=== PATIENT | female | born 1960 | race African-American/Black ===

== ENCOUNTER 2017-08-19 10:38 | Outpatient (CLI) | payer MEDICARE, MEDICAID ==
--- NOTE | 2017-08-19 13:33 | CT ---
CT CHEST WITHOUT CONTRAST: Date: 08/19/17 Multiple axial tomograms obtained through chest without IV enhancement. Low dose protocol followed. HISTORY: Smoker for 20 years. FINDINGS: There is a soft tissue nodule in the right middle lobe adjacent to the fissure measuring up to 1.5 cm . This lesion is suspicious for neoplasm. There is a tiny 4.0 mm nodule in the right upper lobe. There is a 3-4 mm pleural based nodule in the right upper lobe. There is a 5.0 mm nodule in the peripheral left upper lobe. Mediastinum is unremarkable. Images through upper abdomen unremarkable. IMPRESSION: There is a 1.5 cm soft tissue nodule in the right middle lobe. There are other smaller nodules as laurel cribed above. This is a Lung-RADS Category 4B, suspicious lesion. Recommend PET scan to assess activity in this 1.5 cm mass. POS: [facility]
== END 2017-08-19 10:39 | disposition home or self-care (01) ==
LOC: CT 10:38
PROVIDERS: ATTEND Family Medicine
DX: F17.211 Nicotine dependence, cigarettes, in remission (principal); R91.1 Solitary pulmonary nodule; Z87.891 Personal history of nicotine dependence
CPT/HCPCS: G0297

== ENCOUNTER 2017-10-13 16:29 | Emergency (ER) | payer MEDICARE, OTHER ==
[2017-10-13] MEDS ORDERED: Ketorolac Tromethamine 30 MG/ML VIAL ONE (17:04)
== END 2017-10-13 17:36 | disposition home or self-care (01) ==
LOC: ERS 16:29
DX: K04.7 Periapical abscess without sinus (principal); E78.5 Hyperlipidemia, unspecified; F17.210 Nicotine dependence, cigarettes, uncomplicated
CPT/HCPCS: 96372; J1885

== ENCOUNTER 2017-11-12 10:12 | Outpatient (CLI) | payer MEDICARE, MEDICAID ==
--- NOTE | 2017-11-12 15:18 | PET ---
PET CT: Date: 11/12/17 HISTORY: 57-year-old female with 1.5 cm nodule in the right middle lobe on screening low density lung scan of 08/19/17. TECHNIQUE: PET scanning with CT attenuation correction was performed from the base of the brain through the prox imal thighs following the intravenous administration of 12.5 mCi F18-FDG. Imaging performed after an uptake interval of 53 minutes. CORRELATION: CT chest dated 08/19/17. FINDINGS: No hypermetabolic activity is seen in the 1.5 cm right middle lobe lung nodule. The other smaller jenniffer g nodules also demonstrate no abnormal FDG localization. No rodney metabolism is seen in the neck, chest, axilla, abdomen, or pelvis. No hypermetabolic liver, adrenal, or skeletal lesions are identified. CT scan used for attenuation correction demonstrates no evidence of pleural effusions or ascites. IMPRESSION: No hypermetabolic activity in the lung nodules. RECOMMENDATION: Follow-up CT scan is recommended in 3 months. POS: [facility]
== END 2017-11-12 10:13 | disposition home or self-care (01) ==
LOC: PET 10:12
PROVIDERS: ATTEND Family Medicine
DX: R91.1 Solitary pulmonary nodule (principal)
CPT/HCPCS: 78815; A9552

== ENCOUNTER 2017-12-09 11:32 | Emergency (ER) | payer MEDICARE, MEDICAID | END 2017-12-09 13:02 | disposition left against medical advice (07) | LOC: ERS 11:32 | DX: Z53.21 Procedure and treatment not carried out due to patient leaving prior to being seen by health care provider (principal) ==

== ENCOUNTER 2018-01-19 12:17 | Outpatient (CLI) | payer MEDICARE, OTHER | END 2018-01-19 12:18 | disposition home or self-care (01) | LOC: BICMAMMO 12:17 | PROVIDERS: ATTEND Specialist | DX: Z12.31 Encounter for screening mammogram for malignant neoplasm of breast (principal); Z80.3 Family history of malignant neoplasm of breast | CPT/HCPCS: 77063; 77067 ==

== ENCOUNTER 2018-02-11 10:42 | Outpatient (CLI) | payer MEDICARE, OTHER ==
[2018-02-11] MEDS ORDERED: ISOVUE-370 76%-LOCM 1 ML ONE (11:01)
== END 2018-02-11 10:43 | disposition home or self-care (01) ==
LOC: BICCT 10:42
PROVIDERS: ATTEND Family Medicine
DX: R91.1 Solitary pulmonary nodule (principal); R59.0 Localized enlarged lymph nodes
CPT/HCPCS: 71260

== ENCOUNTER 2018-07-28 17:25 | Emergency (ER) | payer MEDICARE, MEDICAID ==
[~2018-07-28 17:25] MED LIST: Iopamidol 370 76% 100 ML VIAL ONE
[2018-07-28 19:20] LABS: #Eosinphils 0.1 thou/uL (0.0-0.7); #Lymphocytes 2.7 thou/uL (1.20-3.40); #Monocytes 0.9 thou/uL (0.11-0.59); #Neutrophils 16.3 thou/uL (1.40-6.50); %Basophils 0.2 % (0.0-1.0); %Eosinophils 0.3 % (0.0-10.0); %Lymphocytes 13.5 % (21.0-51.0); %Monocytes 4.3 % (0.0-10.0); %Neutrophils 81.7 % (42.0-75.0); Hemoglobin 14.6 g/dL (12.0-16.0); Mean Corpuscular HGB CONC 32.1 g/dL (32.0-36.0); Mean Corpuscular Hemoglobin 27.6 pg (27.0-31.0); Mean Platelet Volume 10.2 fL (7.4-10.4); Platelet Count 270 thou/uL (130-400); RBC Distribution Width 14.9 % (11.5-14.5); White Blood Cell (WBC) Count 19.9 thou/uL (4.8-10.8)
[2018-07-28 19:32] LABS: ALT (SGPT) 25 U/L (8-55); AST (SGOT) 20 U/L (5-34); Albumin 4.4 g/dL (3.5-5.0); Alkaline Phosphatase 78 U/L (40-150); Anion Gap 14 mmol/L (10-20); BUN (Urea Nitrogen) 17 mg/dL (9.8-20.1); Bilirubin, Total 0.4 mg/dL (0.2-1.2); Calc. Creatinine Clearance 0 mL/min (70-130); Calcium 9.4 mg/dL (7.8-10.44); Carbon Dioxide 24 mmol/L (22-29); Chloride 105 mmol/L (98-107); Estimated GFR-MDRD 87; Globulin 3.5 g/dL (2.4-3.5); Glucose 108 mg/dL (70-105); Potassium 3.9 mmol/L (3.5-5.1); Protein, Total 7.9 g/dL (6.0-8.3); Sodium 139 mmol/L (136-145)
[2018-07-28] MEDS ORDERED: Mag-Al 1200 mg/1200 mg/30 ML UDCUP ONE (20:29)
[2018-07-28] MEDS ORDERED: Ondansetron ODT 4 MG TAB ONE (20:29)
[2018-07-28] MEDS ORDERED: Lidocaine Viscous Sol 2% 15 ml UD Cup ONE (20:29)
[2018-07-28 21:11] LABS: Troponin I Less than 0.010 ng/mL (< 0.028)
--- NOTE | 2018-07-28 23:27 | CT ---
CT OF THE ABDOMEN AND PELVIS WITH IV CONTRAST 07/28/18 INDICATION: History of abdominal pain. FINDINGS: There is stable right middle lobe pulmonary nodule. Tiny hypodensities are seen within the right hepatic lobe, too small to characterize. The pancreas, adrenal glands, and kidneys are normal appearing. The spleen is normal appearing. No fr ee fluid or enlarged lymph nodes are evident. There is normal appendix in the right lower quadrant. Small suspected fibroid is seen within the ante rior uterine fundus. An unopacified large and small bowel appear within normal limits. There is scatt ered vascular calcifications. No definite acute osseous abnormality is evident. Laminectomy change is seen at L4. There are chronic appearing superior end plate compression deformities of L1 and L2 which are stable to a comparison d ated 02/11/18 . IMPRESSION: 1. No acute explanation for the patient's abdominal pain. 2. Tiny hypodensities within the right hepatic lobe, too small to characterize. 3. Normal appendix. 4. Fibroid uterus. 5. Chronic appearing superior end plate compression abnormality of L1 and L2 stable to a compari son CT dated 02/11/18. POS: [facility]
== END 2018-07-28 22:17 | disposition home or self-care (01) ==
LOC: ERS 17:25
DX: K29.70 Gastritis, unspecified, without bleeding (principal); I10 Essential (primary) hypertension; F17.210 Nicotine dependence, cigarettes, uncomplicated; Z79.899 Other long term (current) drug therapy
CPT/HCPCS: 36415; 74177; 80053; 83690; 84484; 85025; 93005; Q0162

== ENCOUNTER 2018-08-11 10:46 | Outpatient (CLI) | payer MEDICARE, MEDICAID ==
--- NOTE | 2018-08-11 13:25 | CT ---
CT CHEST WITH IV CONTRAST: History: Lung nodule. Follow up. Comparison: Multiple exams back to 08-19-17. FINDINGS: The largest of the low density lesions, at the posterior aspect of the medial segment right middle lo be remains smoothly marginated. It is 1.5 x 1.0 cm greatest diameters on the axial images, stable. Th e small nodules within the right upper lobe and left upper lobe, subpleural, are stable also. No pleu ral fluid. No new masses. The lobular low density lymph node at the precarinal and subcarinal levels of the mediastinum are unc hanged in appearance. IMPRESSION: One year stability of the bilateral lung nodules and the lobular low density mediastinal lymph nodes. No hypermetabolic activity was described on PET scan from 11-12-17. Please consider continued follow up, with CT chest in 6 months, to evaluate for stability. The goal would be to demonstrate three year s stability. POS: [facility]
== END 2018-08-11 10:47 | disposition home or self-care (01) ==
LOC: BICCT 10:46
PROVIDERS: ATTEND Family Medicine
DX: R91.8 Other nonspecific abnormal finding of lung field (principal)
CPT/HCPCS: 71260

== ENCOUNTER 2019-01-28 10:17 | Outpatient (CLI) | payer MEDICARE, MEDICAID ==
--- NOTE | 2019-01-28 10:52 | MMO ---
Bilateral MAMMO Bilat Screen [facility]. CLINICAL HISTORY: Patient is 58 years old and is seen for screening. The patient has the following family history of breast cancer: maternal aunt, at age 68 and maternal aunt, at age 65. The patient has no personal history of cancer. VIEWS: The views performed were: bilateral craniocaudal with tomosynthesis; bilateral mediolateral oblique with tomosynthesis; and left exaggerated craniocaudal. FILMS COMPARED: The present examination has been compared to prior imaging studies performed at [facility] on 04/12/2013, 06/05/2014, 06/28/2015, 07/10/2016 and 01/19/2018. MAMMOGRAM FINDINGS: There are scattered fibroglandular densities. There are no suspicious masses, suspicious calcifications, or new areas of architectural distortion. IMPRESSION: THERE IS NO MAMMOGRAPHIC EVIDENCE OF MALIGNANCY. A ROUTINE FOLLOW-UP MAMMOGRAM IN 1 YEAR IS RECOMMENDED. THE RESULTS OF THIS EXAM WERE SENT TO THE PATIENT. ACR BI-RADS Category 1 - Negative MAMMOGRAPHY NOTE: 1. A negative mammogram report should not delay a biopsy if a dominant of clinically suspicious mass is present. 2. Approximately 10% to 15% of breast cancers are not detected by mammography. 3. Adenosis and dense breasts may obscure an underlying neoplasm.
== END 2019-01-28 10:18 | disposition home or self-care (01) ==
LOC: BICMAMMO 10:17
PROVIDERS: ATTEND Family Medicine
DX: Z12.31 Encounter for screening mammogram for malignant neoplasm of breast (principal); Z80.3 Family history of malignant neoplasm of breast
CPT/HCPCS: 77063; 77067

== ENCOUNTER 2019-08-09 13:36 | Outpatient (CLI) | payer MEDICARE, MEDICAID ==
[2019-08-09] MEDS ORDERED: Iopamidol 370 76% 100 ML VIAL ONE (13:48)
--- NOTE | 2019-08-09 15:41 | CT ---
Exam: Chest CT with contrast HISTORY: Pulmonary nodule. COMPARISON: 08/11/2018 FINDINGS: Mediastinum: Persistent lymphadenopathy in the right paratracheal region. Conglomeration of lymph nod e measures 2.6 x 1.5 cm. Previously, the conglomeration of lymph node measured 2.6 x 1.5 cm. Enlarged, necrotic subcarinal lymph node measures 2.5 x 1.7 cm. Additional enlarged subcarinal lymph node measures 2.1 x 1.1 cm. Previously, the necrotic subcarinal lymph node measured 2.8 x 1.5 cm. The adjacent hypodensity measured 2.1 x 1.3 cm. This adjacent hypodensity may in retrospect be a smal l focus of pericardial fluid. No significant hilar lymphadenopathy. There is a posterior right mediastinal necrotic lymph node measuring 2.9 x 1.9 cm (previously measuring 1.7 x 2.4 cm. HEART: No significant pericardial fluid or cardiac enlargement. Aorta: Normal caliber. Upper abdomen: No solid organ abnormality Osseous structures: No lytic or blastic lesions Trachea and central bronchi: Patent Pleural spaces: No pleural effusion Pneumothorax: None Right lun.4 cm solid nodule in the apex. 0.4 cm pleural-based nodule in the lateral aspect of the right upper lobe. Stable 0.2 cm subpleural lymph node adjacent to the minor fissure. Stable pleural-based nodule along the lateral aspect of the middle lobe measuring 0.4 cm. Interval size incr ease of a slightly irregular marginated nodule in the medial aspect of the middle lobe measuring 1.9 x 1.1 cm. Previously, this nodule measured 1.1 x 1.5 cm. The nodules reported in the right upper lobe are unchanged. Left lun separate solid nodules in the left upper lobe measuring 0.5 x 0.4 and 0.6 x 0.4 cm. Both nodules are unchanged from the previous examination. IMPRESSION: 1. Redemonstration of extensive mediastinal lymphadenopathy. Some of these lymph nodes appear to be n ecrotic. 2. 2. Interval increase in size of a nodule along the middle lobe. Further evaluation with PET imaging may be beneficial given the size increase of the right lower lobe nodule and persist ent lymphadenopathy in the mediastinum. CODE T Transcribed Date/Time: 08/09/2019 3:50 PM
== END 2019-08-09 13:37 | disposition home or self-care (01) ==
LOC: BICCT 13:36
PROVIDERS: ATTEND Family Medicine
DX: R91.1 Solitary pulmonary nodule (principal); R59.0 Localized enlarged lymph nodes
CPT/HCPCS: 71260; Q9967

== ENCOUNTER 2019-09-01 07:23 | Outpatient (CLI) | payer MEDICARE, MEDICAID ==
--- NOTE | 2019-09-01 11:02 | PET ---
PET CT: HISTORY: 59-year-old with solitary pulmonary nodules right middle lobe. TECHNIQUE: PET scanning with CT attenuation correction was performed from the base of the brain through the prox imal thighs following the intravenous administration of 11.8 mCi F18-FDG in the right antecubital fos sa. COMPARISON: PET CT of 11/12/17. CORRELATION: CT chest of 08/09/19. FINDINGS: No hypermetabolic activity is seen in the 2.0 x 1.0 cm right middle lobe lung nodule (SUV 1.3). The o ther small lung nodules also demonstrate no abnormal FDG localization. There is mildly increased uptake in a right paratracheal lymph node with a SUV of 2.6. Subcarinal lym ph nodes demonstrate no abnormal FDG localization and have a SUV of 1.9. No rodney hypermetabolism is noted in the neck, axilla, hilar regions, abdomen, or pelvis. No hypermet abolic liver, renal, or skeletal lesions are identified. The CT scan used for attenuation correction demonstrates no evidence of pleural effusions or ascites. There is physiologic activity in the GI and tracts, and the visualized portions of the brain. IMPRESSION: Hypermetabolic activity in the right paratracheal lymph node may represent a suspicious finding. POS: [facility]
== END 2019-09-01 07:24 | disposition home or self-care (01) ==
LOC: PET 07:23
PROVIDERS: ATTEND Family Medicine
DX: R91.1 Solitary pulmonary nodule (principal)
CPT/HCPCS: 78815; A9552

== ENCOUNTER 2019-10-25 13:55 | Outpatient (CLI) | payer MEDICARE, MEDICAID ==
--- NOTE | 2019-10-25 14:40 | RAD ---
LUMBAR SPINE: Three views obtained. Lateral views with neutral, flexion, and extension. INDICATION: Post laminectomy syndrome. COMPARISON: Correlation is made to an MRI lumbar spine dated 12/01/2016. FINDINGS: There is mild superior end plate compression at L1 and L2 which has occurred since the prior exam. M ild anterior osteophytes at all levels. Mild loss of disk space at T12-L1 and at L1-2. Mild loss of disk space at L4-5 and L5-S1 appears stable from the prior MRI. Moderate facet hypertrophy in the l ower lumbar spine. Posterior alignment is preserved with no change with flexion or extension. IMPRESSION: Mild superior end plate compression at L1 and L2 has occurred since the prior exam. There are degene rative changes as described. POS: [facility]
== END 2019-10-25 13:56 | disposition home or self-care (01) ==
LOC: RAD 13:55
PROVIDERS: ATTEND Nurse Practitioner Family
DX: M96.1 Postlaminectomy syndrome, not elsewhere classified (principal); M47.816 Spondylosis without myelopathy or radiculopathy, lumbar region
CPT/HCPCS: 72100

== ENCOUNTER 2019-10-31 09:08 | Outpatient (CLI) | payer MEDICARE, MEDICAID ==
--- NOTE | 2019-10-31 09:46 | RAD ---
XR Chest Pa Lat @ [facility] HISTORY: Dyspnea COMPARISON: None FINDINGS: The heart size is normal. The lungs are well expanded without focal areas of consolidation, pneumothorax or pleural effusions. IMPRESSION: No radiographic evidence of acute cardiopulmonary process. Evaluation of the lung nodule noted on CT scan of 08/09/2019 should be performed with a follow-up CT scan.
== END 2019-10-31 09:09 | disposition home or self-care (01) ==
LOC: RAD 09:08
PROVIDERS: ATTEND Internal Medicine Critical Care Medicine
DX: R06.00 Dyspnea, unspecified (principal)
CPT/HCPCS: 71046

== ENCOUNTER 2019-11-02 06:04 | Day surgery (SDC) | payer MEDICARE, MEDICAID ==
[2019-11-01 15:28] VITALS: BMI 45.7
[2019-11-02] MEDS ORDERED: Fentanyl 100 MCG/2 ML VIAL ONE (06:31)
[2019-11-02] MEDS ORDERED: Bupivacaine PF 0.5% 30 ML VIAL ONE (06:49)
[2019-11-02] MEDS ORDERED: EPINEPHrine 1 MG/ML AMP ONE (06:49)
[2019-11-02 06:52] LABS: Hemoglobin 13.7 g/dL (12.0-16.0); Mean Corpuscular HGB CONC 33.6 g/dL (32.0-36.0); Mean Corpuscular Hemoglobin 27.6 pg (27.0-31.0); Mean Corpuscular Volume 82.1 fL (78.0-98.0); Mean Platelet Volume 10.6 fL (7.4-10.4); Platelet Count 227 thou/uL (130-400); RBC Distribution Width 14.1 % (11.5-14.5); Red Blood Cell (RBC) Count 4.96 mill/uL (4.20-5.40); White Blood Cell (WBC) Count 11.8 thou/uL (4.8-10.8)
[2019-11-02 07:05] LABS: Anion Gap 15 mmol/L (10-20); BUN (Urea Nitrogen) 9 mg/dL (9.8-20.1); Calc. Creatinine Clearance 143 mL/min (70-130); Carbon Dioxide 25 mmol/L (22-29); Chloride 103 mmol/L (98-107); Estimated GFR-MDRD Greater than 90; Glucose 122 mg/dL (70-105); Potassium 4.3 mmol/L (3.5-5.1); Sodium 139 mmol/L (136-145)
--- NOTE | 2019-11-02 09:24 | OP ---
DATE OF PROCEDURE: 11/02/2019 PREOPERATIVE DIAGNOSIS: Mediastinal adenopathy-PET positive. POSTOPERATIVE DIAGNOSIS: Mediastinal adenopathy-PET positive. PROCEDURE PERFORMED: Cervical mediastinoscopy with biopsy of level 4R lymph node. ANESTHESIA: General endotracheal, Dr. Kieran Mantilla. ESTIMATED BLOOD LOSS: Minimal. SPECIMENS: Level 4R lymph node for AFB, culture, and pathology. DESCRIPTION OF PROCEDURE: After consent was obtained, the patient was brought to the operating room and placed in supine position on the operating table. Appropriate central line and monitors were placed and general endotracheal anesthesia was induced. Neck was extended and joints were appropriately supported. Neck and chest were prepped and draped in usual sterile fashion. Skin incision was made in a low skin crease. Dissection down between the strap muscles was obtained. Thyroid isthmus was divided with electrocautery. Anterior tracheal fascia was incised. Blunt dissection was used to enter the mediastinum. Mediastinoscope was inserted, and the trachea was followed distally. On the right, there was noted to be a large lymph node, which was excised and sent for culture, AFB, and pathologic exam. Hemostasis was ensured. Wounds were closed in layers and Dermabond was applied to skin. Incision was injected with 0.5% Marcaine mixed with epinephrine. The patient tolerated the procedure well. She was transferred to recovery room and home later today. We will follow up with her on path. Job ID: [id number]
[2019-11-02] MEDS ORDERED: Dexamethasone 20 MG/5 ML VIAL ONE (12:46)
[2019-11-02] MEDS ORDERED: Glycopyrrolate 0.2 MG/ML 5 ML SYRINGE ONE (12:46)
[2019-11-02] MEDS ORDERED: Labetalol HCl 100 MG/20 ML VIAL ONE (12:46)
[2019-11-02] MEDS ORDERED: Lidocaine 1% PF 5 ML VIAL ONE (12:46)
[2019-11-02] MEDS ORDERED: PROPOFOL 200 MG/20 ML VIAL ONE (12:46)
[2019-11-02] MEDS ORDERED: Ketorolac Tromethamine 30 MG/ML VIAL ONE (12:46)
[2019-11-02] MEDS ORDERED: Ondansetron PF 4 MG/2 ML Vial ONE (12:46)
[2019-11-02] MEDS ORDERED: Rocuronium Bromide 10 MG/ML (10ML VIAL) ONE (12:46)
== END 2019-11-02 10:40 | disposition home or self-care (01) ==
LOC: SDC 06:04
PROVIDERS: ATTEND Thoracic Surgery (Cardiothoracic Vascular Surgery)
PROC: 07B74ZX Excision of Thorax Lymphatic, Percutaneous Endoscopic Approach, Diagnostic (ICD-10-PCS; principal; 2019-11-02)
DX: R59.0 Localized enlarged lymph nodes (principal); F17.210 Nicotine dependence, cigarettes, uncomplicated; Z79.82 Long term (current) use of aspirin; Z79.899 Other long term (current) drug therapy; Z88.8 Allergy status to other drugs, medicaments and biological substances; Z91.018 Allergy to other foods
CPT/HCPCS: 80048; 85027; 87070; 87102; 87116; 87205; 87206; 88184; 88307; 88312; J0171; J0690; J3010; S0020

== ENCOUNTER 2020-02-17 13:33 | Outpatient (CLI) | payer MEDICARE, MEDICAID ==
--- NOTE | 2020-02-17 15:53 | MMO ---
Bilateral MAMMO Bilat Screen [facility]. CLINICAL HISTORY: Patient is 59 years old and is seen for screening. The patient has the following family history of breast cancer: maternal aunt, at age 68 and maternal aunt, at age 65. The patient has no personal history of cancer. VIEWS: The views performed were: bilateral craniocaudal with tomosynthesis; bilateral mediolateral oblique with tomosynthesis; and bilateral exaggerated craniocaudal. FILMS COMPARED: The present examination has been compared to prior imaging studies performed at [facility] on 06/28/2015, 07/10/2016, 01/19/2018 and 01/28/2019. This study has been interpreted with the assistance of computer-aided detection. MAMMOGRAM FINDINGS: There are scattered fibroglandular densities. There are no suspicious masses, suspicious calcifications, or new areas of architectural distortion. IMPRESSION: THERE IS NO MAMMOGRAPHIC EVIDENCE OF MALIGNANCY. A ROUTINE FOLLOW-UP MAMMOGRAM IN 1 YEAR IS RECOMMENDED. THE RESULTS OF THIS EXAM WERE SENT TO THE PATIENT. ACR BI-RADS Category 1 - Negative MAMMOGRAPHY NOTE: 1. A negative mammogram report should not delay a biopsy if a dominant of clinically suspicious mass is present. 2. Approximately 10% to 15% of breast cancers are not detected by mammography. 3. Adenosis and dense breasts may obscure an underlying neoplasm. Reported by: JOSE A ROMANO MD Electonically Signed: [id number]
== END 2020-02-17 13:34 | disposition home or self-care (01) ==
LOC: BICMAMMO 13:33
PROVIDERS: ATTEND Family Medicine
DX: Z12.31 Encounter for screening mammogram for malignant neoplasm of breast (principal); Z80.3 Family history of malignant neoplasm of breast
CPT/HCPCS: 77063; 77067

== ENCOUNTER 2020-03-09 11:56 | Outpatient (CLI) | payer OTHER, MEDICAID ==
--- NOTE | 2020-03-09 13:39 | MRI ---
MRI Lumbar Spine WO Con History: S 32.000 a wedge compression fracture Comparison: Lumbar spine radiograph October 2019 Findings: No hydronephrosis. No retroperitoneal periaortic adenopathy. Paraspinal musculature is symmetric. No marrow infiltrative process. No acute fracture. The STIR images are limited due to lack of adequate signal. The conus medullaris terminates near the superior endplate of L2. Old anterior superior compression d eformities of L1 and L2. No acute compression deformity. Laminectomy change L3-L5. Levels are as follows: L1-2: Mild facet arthrosis. Small circumferential disc bulge. Mild bilateral neural foraminal narrowi ng. Effacement of ventral CSF space, mild, with the spinal canal measuring 6 mm. L2/L3: Normal disc height and hydration. Minimal asymmetric left lateral recess and subforaminal disc bulge. Mild left neural foraminal narrowing. No significant spinal canal narrowing. L3-4: Moderate degenerative disc space height loss. Circumferential disc bulge. Moderate hypertrophic facet arthrosis. Moderate to severe left and moderate right neural foraminal narrowing with abutment of both exiting nerve roots. L4-5: Mild degenerative disc space height loss is circumferential disc osteophyte complex greatest in the right lateral recess and subforaminal zone. Severe left and moderate to severe right neural foraminal narrowing with abutment of both exiting nerve roots. L5/S1: Circumferential disc osteophyte complex greatest in the left lateral recess and subforaminal z one. Severe left neural foraminal narrowing and moderate to severe right neural foraminal narrowing with impingement upon the left exiting nerve root and abutment of the left S1 nerve root appears also abutment of the right exiting L5 nerve root. Impression: Multilevel high-grade neural foraminal narrowing as described.
== END 2020-03-09 11:57 | disposition home or self-care (01) ==
LOC: BICMRI 11:56
PROVIDERS: ATTEND Specialist
DX: S32.000A Wedge compression fracture of unspecified lumbar vertebra, initial encounter for closed fracture (principal); M48.061 Spinal stenosis, lumbar region without neurogenic claudication
CPT/HCPCS: 72148

== ENCOUNTER 2020-07-18 10:28 | Outpatient (CLI) | payer MEDICARE, MEDICAID ==
[2020-07-18 10:48] LABS: Estimated GFR-MDRD - POC Greater than 90
--- NOTE | 2020-07-18 11:12 | CT ---
CT chest with IV contrast HISTORY: Lung nodule. Follow-up. COMPARISON: 08/09/2019 and 08/11/2018. FINDINGS: The noncalcified soft tissue density nodule within the inferior posterior aspect of the rig ht middle lobe measures 1.6 cm x 1.1 cm greatest diameters on today's axial images, stable. Additional small, nonspecific subpleural nodules within each lung are also stable, including a 0.3 cm nodule at the lateral aspect of the right lung apex, a 0.4 cm nodule at the anterolateral aspect of the left upper lobe, and a 0.4 cm nodule within the lateral aspect of the left upper lobe. No pleu ral fluid or pneumothorax. The oval low density subcarinal lymph node is 4.9 cm greatest oblique length on the coronal images by 2.8 cm x 1.8 cm diameters on the axial images. Stable. The 1.3 cm right paratracheal lymph node is slightly smaller than on the prior study. Other nonenlarged mediastinal lymph nodes are stable. A 1.2 cm noncalcified nodule within the deep lateral aspect of the right breast was seen on the most recent PET scan without hypermetabolic activity. IMPRESSION : The right paratracheal lymph node (hypermetabolic on interval PET scan) is smaller than on the prior study, now 1.3 cm. Other mediastinal lymph nodes and lung nodules, including the 1.6 cm right middle lobe nodule, are stable. No new abnormalities.
== END 2020-07-18 10:29 | disposition home or self-care (01) ==
LOC: BICCT 10:28
PROVIDERS: ATTEND Internal Medicine Critical Care Medicine
DX: R91.1 Solitary pulmonary nodule (principal)
CPT/HCPCS: 71260; 82565; Q9967

== ENCOUNTER 2020-08-19 10:18 | Emergency (ER) | payer MEDICARE, MEDICAID ==
[~2020-08-19 10:18] MED LIST changes: -Iopamidol 370 76% 100 ML VIAL ONE; +Iopamidol-370 76% 500 ML 1 ML ONE
[2020-08-19] MEDS ORDERED: Ondansetron PF 4 MG/2 ML Vial ONE (10:47)
[2020-08-19] MEDS ORDERED: Morphine 4 MG/ML VIAL ONE (10:47)
[2020-08-19 11:00] LABS: #Basophils 0.1 thou/uL (0.0-0.2); #Eosinphils 0.2 thou/uL (0.0-0.7); #Lymphocytes 3.6 thou/uL (1.20-3.40); #Monocytes 0.9 thou/uL (0.11-0.59); #Neutrophils 6.7 thou/uL (1.40-6.50); %Basophils 0.7 % (0.0-1.0); %Eosinophils 1.4 % (0.0-10.0); %Lymphocytes 31.5 % (21.0-51.0); %Monocytes 7.7 % (0.0-10.0); %Neutrophils 58.6 % (42.0-75.0); Hemoglobin 12.8 g/dL (12.0-16.0); Mean Corpuscular HGB CONC 32.1 g/dL (32.0-36.0); Mean Corpuscular Hemoglobin 26.4 pg (27.0-31.0); Mean Corpuscular Volume 82.4 fL (78.0-98.0); Mean Platelet Volume 10.5 fL (7.4-10.4); Platelet Count 245 thou/uL (130-400); RBC Distribution Width 14.6 % (11.5-14.5); Red Blood Cell (RBC) Count 4.83 mill/uL (4.20-5.40); White Blood Cell (WBC) Count 11.5 thou/uL (4.8-10.8)
[2020-08-19 11:23] LABS: ALT (SGPT) 18 U/L (8-55); AST (SGOT) 22 U/L (5-34); Albumin 3.8 g/dL (3.5-5.0); Alkaline Phosphatase 108 U/L (40-110); Anion Gap 16 mmol/L (10-20); BUN (Urea Nitrogen) 7 mg/dL (9.8-20.1); Bilirubin, Total 0.5 mg/dL (0.2-1.2); Calc. Creatinine Clearance 0 mL/min (70-130); Calcium 9.5 mg/dL (7.8-10.44); Carbon Dioxide 26 mmol/L (22-29); Chloride 99 mmol/L (98-107); Estimated GFR-MDRD 86; Globulin 3.7 g/dL (2.4-3.5); Glucose 157 mg/dL (70-105); Lipase 28 U/L (8-78); Potassium 3.9 mmol/L (3.5-5.1); Protein, Total 7.5 g/dL (6.0-8.3); Sodium 137 mmol/L (136-145)
[2020-08-19 13:00] LABS: Bilirubin Negative (Negative); Blood, Urine Negative (Negative); Clarity Turbid (Clear); Glucose, Urine (Dipstick) Normal (Negative); Ketone, Urine Negative (Negative); Leukocyte 500 Leu/uL (Negative); Nitrite Negative (Negative); Protein, Urine (Dipstick) Negative (Neg-Trace); Specific Gravity, Urine 1.039 (1.002-1.036); Urobilinogen Normal mg/dL (Less than 2); pH, Urine 5.5 (5.0-9.0)
[2020-08-19 13:09] LABS: RBC/HPF 0-3 HPF (0-3)
[2020-08-19 13:10] LABS: Bacteria/HPF 2+ HPF (None Seen)
[2020-08-19] MEDS ORDERED: cefTRIAXone\\ROCEPHIN 1 GM VIAL ONE (13:30)
--- NOTE | 2020-08-19 13:39 | CT ---
CT ABDOMEN AND PELVIS WITH IV CONTRAST: DATE: 08/19/2020 HISTORY: Abdominal pain. FINDINGS: Comparison made with CT abdomen and pelvis dated 07/28/[address] chest of 07/18/2020. The 15 mm right middle lobe lung nodule and enlarged subcarinal lymph nodes measuring up to 2.8 cm ar e stable since the CT chest of 07/18/2020. There are mild dependent changes in the right lung base. There is fatty infiltration of the liver, which is new since 07/28/2018, but was seen on the CT chest of 07/18/2020. No hepatic mass or abnormal biliary ductal dilatation is seen. No calcified gallstone s are noted. The spleen, pancreas, adrenal glands, and kidneys are normal. No free air, free fluid, or lymphadenopathy seen in the abdomen or pelvis. The small bowel loops are not abnormally dilated. There is no evidence of ascites. Fibroid uterus is again seen. There are vascular calcifications without evidence of aneurysmal dilatation of the abdominal aorta. T here are degenerative changes in the spine. No osteolytic or osteoblastic lesions are seen. A small h iatal hernia is present. IMPRESSION: No evidence of acute process. POS: [facility]
== END 2020-08-19 13:55 | disposition home or self-care (01) ==
LOC: ERS 10:18
DX: N39.0 Urinary tract infection, site not specified (principal); R91.1 Solitary pulmonary nodule; Z79.899 Other long term (current) drug therapy; Z79.891 Long term (current) use of opiate analgesic; E78.00 Pure hypercholesterolemia, unspecified; Z87.891 Personal history of nicotine dependence
CPT/HCPCS: 74177; 80053; 81003; 81015; 83690; 85025; 87086; 96361; 96365; 96375; J0696; J2270; J2405; Q9967

== ENCOUNTER 2020-08-23 09:10 | Emergency (ER) | payer MEDICARE, MEDICAID ==
[2020-08-23 09:44] LABS: #Basophils 0.1 thou/uL (0.0-0.2); #Eosinphils 0.2 thou/uL (0.0-0.7); #Lymphocytes 3.2 thou/uL (1.20-3.40); #Monocytes 0.8 thou/uL (0.11-0.59); #Neutrophils 6.9 thou/uL (1.40-6.50); %Basophils 0.6 % (0.0-1.0); %Lymphocytes 28.8 % (21.0-51.0); %Monocytes 7.1 % (0.0-10.0); %Neutrophils 61.6 % (42.0-75.0); Hemoglobin 11.9 g/dL (12.0-16.0); Mean Corpuscular HGB CONC 32.1 g/dL (32.0-36.0); Mean Corpuscular Hemoglobin 26.8 pg (27.0-31.0); Mean Corpuscular Volume 83.7 fL (78.0-98.0); Mean Platelet Volume 9.9 fL (7.4-10.4); Platelet Count 225 thou/uL (130-400); RBC Distribution Width 14.5 % (11.5-14.5); Red Blood Cell (RBC) Count 4.43 mill/uL (4.20-5.40); White Blood Cell (WBC) Count 11.2 thou/uL (4.8-10.8)
[2020-08-23 10:14] LABS: ALT (SGPT) 15 U/L (8-55); AST (SGOT) 17 U/L (5-34); Albumin 3.6 g/dL (3.5-5.0); Alkaline Phosphatase 96 U/L (40-110); Anion Gap 13 mmol/L (10-20); BUN (Urea Nitrogen) 5 mg/dL (9.8-20.1); Bilirubin, Total 0.4 mg/dL (0.2-1.2); Calc. Creatinine Clearance 0 mL/min (70-130); Calcium 8.9 mg/dL (7.8-10.44); Carbon Dioxide 31 mmol/L (22-29); Chloride 102 mmol/L (98-107); Estimated GFR-MDRD Greater than 90; Globulin 3.5 g/dL (2.4-3.5); Glucose 140 mg/dL (70-105); Potassium 3.7 mmol/L (3.5-5.1); Protein, Total 7.1 g/dL (6.0-8.3); Sodium 142 mmol/L (136-145)
[2020-08-23 10:35] LABS: Bilirubin Negative (Negative); Blood, Urine Negative (Negative); Clarity Turbid (Clear); Glucose, Urine (Dipstick) Normal (Negative); Ketone, Urine Negative (Negative); Leukocyte 500 Leu/uL (Negative); Nitrite Negative (Negative); Protein, Urine (Dipstick) 10 mg/dL (Neg-Trace); RBC/HPF 0-3 HPF (0-3); Specific Gravity, Urine 1.018 (1.002-1.036); Squamous Epithelial 21-50 HPF (0-3); Urobilinogen Normal mg/dL (Less than 2)
[2020-08-23 10:40] LABS: Bacteria/HPF 1+ HPF (None Seen)
--- NOTE | 2020-08-23 10:42 | ULT ---
TRANSABDOMINAL TRANSVAGINAL PELVIC ULTRASOUND DATE:: 08/23/2020 9:55 AM CLINICAL HISTORY: Pelvic pain. COMPARISON: None. TECHNIQUE: Grayscale, color Doppler and spectral Doppler images were obtained of the pelvis utilizing a transabdominal and transvaginal approach. There is limited visualization of the pelvic anatomy due to overlying bowel gas. FINDINGS: UTERUS: Size: 8.4 x 5.9 x 5.0 centimeters Mass: None Cervix: Small echogenicity is seen within the endocervical canal likely related to gas. Endometrial Thickness: 14.2 mm. RIGHT OVARY: Not seen LEFT OVARY: Not seen CUL-DE-SAC: No free fluid IMPRESSION: Image detail is limited on the current exam. Thickening of the endometrial stripe to 14 mm is abnorma l for a postmenopausal female. Recommend consideration for endometrial sampling. Findings may reflect hyperplasia, polyposis or carcinoma. If clinically indicated, further evaluation may be helpf ul with an MRI of the pelvis with and without IV contrast.
[2020-08-23] MEDS ORDERED: Ondansetron PF 4 MG/2 ML Vial ONE (11:43)
[2020-08-23] MEDS ORDERED: Morphine 4 MG/ML VIAL ONE (11:43)
== END 2020-08-23 12:20 | disposition home or self-care (01) ==
LOC: ERS 09:10
DX: N85.00 Endometrial hyperplasia, unspecified (principal); E78.00 Pure hypercholesterolemia, unspecified; M19.90 Unspecified osteoarthritis, unspecified site; Z87.891 Personal history of nicotine dependence; Z79.899 Other long term (current) drug therapy
CPT/HCPCS: 36415; 76856; 80053; 81003; 81015; 85025; 87086; 94760; 96374; 96375; J2270; J2405

== ENCOUNTER 2020-09-17 09:59 | Day surgery (SDC) | payer MEDICARE, MEDICAID ==
[2020-09-12 12:49] VITALS: BMI 45.7
[2020-09-12 17:13] LABS: Hemoglobin 11.9 g/dL (12.0-16.0); Mean Corpuscular HGB CONC 30.9 G/DL (32.0-36.0); Mean Corpuscular Hemoglobin 25.8 PG (27.0-33.0); Mean Corpuscular Volume 83.3 fl (80.0-100.0); Mean Platelet Volume 12.6 fl (7.4-10.4); Platelet Count 273 10x3/uL (130-400); RBC Distribution Width 15.8 % (11.5-14.5); Red Blood Cell (RBC) Count 4.62 10x6/uL (3.90-5.20); White Blood Cell (WBC) Count 11.4 10x3/uL (4.5-11.0)
[2020-09-13 02:45] LABS: SARS-CoV-2 MS2 Positive; SARS-CoV-2 N Gene Negative; SARS-CoV-2 S Gene Negative; SARS-CoV-2 by NAA Not Detected (NotDetected); SARS-CoV-2 orf1ab Negative
[2020-09-17] MEDS ORDERED: ePHEDrine 50 MG/ML VIAL ONE (10:00)
[2020-09-17] MEDS ORDERED: Ondansetron PF 4 MG/2 ML Vial ONE (10:00)
[2020-09-17] MEDS ORDERED: Glycopyrrolate 0.2 MG/ML 5 ML SYRINGE ONE (10:00)
[2020-09-17] MEDS ORDERED: Succinylcholine 200 MG/10 ml SYRINGE FS ONE (10:00)
[2020-09-17] MEDS ORDERED: Dexamethasone 20 MG/5 ML VIAL ONE (10:00)
[2020-09-17] MEDS ORDERED: Lidocaine 1% PF 5 ML VIAL ONE (10:00)
[2020-09-17] MEDS ORDERED: Rocuronium Bromide 10 MG/ML (10ML VIAL) ONE (10:00)
[2020-09-17] MEDS ORDERED: PROPOFOL 200 MG/20 ML VIAL ONE (10:00)
[2020-09-17] MEDS ORDERED: Fentanyl 100 MCG/2 ML VIAL ONE ×2 (10:52→10:55)
[2020-09-17] MEDS ORDERED: CeleCOXIB 100 MG CAP ONE (10:55)
[2020-09-17] MEDS ORDERED: Famotidine/PF 20 mg/2ml Vial ONE (10:55)
--- NOTE | 2020-09-17 14:59 | OP ---
DATE OF PROCEDURE: 09/17/2020 PREOPERATIVE DIAGNOSES: 1. Pelvic pain. 2. Thickened endometrium. POSTOPERATIVE DIAGNOSES: 1. Pelvic pain. 2. Thickened endometrium. PROCEDURES PERFORMED: 1. Hysteroscopy. 2. Dilation and curettage. 3. Pap smear. ANESTHESIA: General endotracheal. 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 ESTIMATED BLOOD LOSS: 5 mL. IVF: 1100 mL of crystalloid. URINE OUTPUT: 200 mL of clear urine at the beginning. COMPLICATIONS: None. DRAINS: None. PATHOLOGY: 1. Endometrial curettings. 2. Pap smear. FINDINGS: Normal-appearing postLEEP cervix with cervical stenosis at scarring over the ectocervix. On hysteroscopic exam, there was a normal-appearing endocervical canal, normal-appearing uterine cavity with normal contours, atrophic endometrium, no intrauterine masses. Bilateral tubal ostia were visualized. The uterus sounded to 7 cm and there was 10 mL fluid deficit using normal saline as distention media. DESCRIPTION OF PROCEDURE: The patient was taken to the operating room where general anesthesia was obtained difficulty. The patient was prepped and draped in a sterile fashion in dorsal lithotomy position. Prior to Betadine prep, Pap smear was performed. Following the Betadine prep, a red rubber in-and-out catheterization was performed. A speculum was placed in the vagina. The anterior lip of the cervix was grasped with single-tooth tenaculum. The scarring over the cervical canal was attempted to be entered into with dilators as well as hemostats. This was unsuccessful, therefore, a #11 blade was used to make a cruciate incision over the ectocervical stenosis, and at that time, a dilator was able to be introduced into the cervical canal and the cervix was progressively dilated with Andrez dilators. The uterus then sounded to 7 cm. A 5-mm hysteroscope was assembled using normal saline as distention media. It was primed and the scope was then inserted into the cervix and uterus with the above findings noted. Photodocumentation was performed. Previously, the patient had imaging that showed a thickened endometrial stripe; however, this was not apparent on today's hysteroscopic exam. However, following photodocumentation, the hysteroscope was removed and sharp curettage was taken to all quadrants of the uterus and sent for final pathology. The hysteroscope was then inserted into the uterus and no active bleeding was noted. All instruments were removed out of the vagina. Tenaculum sites were hemostatic. The patient tolerated the procedure well. Sponge, lap, and needle counts correct x2. The patient was taken to Recovery in stable condition. The patient did not receive antibiotic prophylaxis prior to the procedure. Job ID: [id number]
[2020-09-22 21:25] LABS: HPV High Risk Type 16 Negative (Negative); HPV High Risk Type 18 Negative (Negative)
[2020-09-22 21:27] LABS: HPV Other High Risk Types Negative (Negative)
== END 2020-09-17 15:35 | disposition home or self-care (01) ==
LOC: SDC 09:59
PROVIDERS: ATTEND Student in an Organized Health Care Education/Training Program
PROC: 0UDB7ZZ Extraction of Endometrium, Via Natural or Artificial Opening (ICD-10-PCS; principal; 2020-09-17)
PROC: 0UDB8ZZ Extraction of Endometrium, Via Natural or Artificial Opening Endoscopic (ICD-10-PCS; 2020-09-17)
DX: D06.9 Carcinoma in situ of cervix, unspecified (principal); N88.2 Stricture and stenosis of cervix uteri; F17.200 Nicotine dependence, unspecified, uncomplicated; G89.29 Other chronic pain; M54.9 Dorsalgia, unspecified; Z79.899 Other long term (current) drug therapy; Z88.8 Allergy status to other drugs, medicaments and biological substances; Z91.018 Allergy to other foods; Z20.828 Contact with and (suspected) exposure to other viral communicable diseases
CPT/HCPCS: 58558; 85027; 86850; 86900; 86901; 87624; 88305; G0123; U0003; 87635; 88142; G0124; J0690; J1100; J2405; J2704; J3010; J3490; S0028

== ENCOUNTER 2021-01-07 11:04 | Outpatient (CLI) | payer MEDICARE, MEDICAID ==
[2021-01-07 11:31] LABS: Hemoglobin 13.5 g/dL (12.0-15.5); Mean Corpuscular HGB CONC 31.8 g/dL (32.0-36.0); Mean Corpuscular Hemoglobin 25.8 pg (27.0-33.0); Mean Corpuscular Volume 81.1 fl (81.6-98.3); Mean Platelet Volume 12.7 fl (7.4-10.4); Platelet Count 302 10x3/uL (150-450); RBC Distribution Width 16.2 % (11.5-14.5); Red Blood Cell (RBC) Count 5.24 10x6/uL (3.90-5.03); White Blood Cell (WBC) Count 15.2 10x3/uL (3.5-10.5)
[2021-01-07 11:45] LABS: BHCG - Serum Negative (NEGATIVE); Pregs Control Background? CLEAR/WHITE (CLR/WHITE); Pregs Control Bar Appear? YES (CONTROL BAR)
[2021-01-07 11:50] LABS: ALT (SGPT) 20 U/L (8-55); AST (SGOT) 17 U/L (5-34); Alkaline Phosphatase 107 U/L (40-110); Anion Gap 17 mmol/L (10-20); BUN (Urea Nitrogen) 11 mg/dL (9.8-20.1); Bilirubin, Direct 0.2 mg/dL (0.1-0.3); Bilirubin, Total 0.3 mg/dL (0.2-1.2); Calc. Creatinine Clearance 0 mL/min (70-130); Calcium 9.5 mg/dL (7.8-10.44); Carbon Dioxide 22 mmol/L (22-29); Chloride 103 mmol/L (98-107); Glucose 142 mg/dL (70-105); Potassium 4.3 mmol/L (3.5-5.1); Protein, Total 7.6 g/dL (6.0-8.3); Sodium 138 mmol/L (136-145)
== END 2021-01-07 11:05 | disposition home or self-care (01) ==
LOC: LABBT 11:04
PROVIDERS: ATTEND Student in an Organized Health Care Education/Training Program
DX: Z01.812 Encounter for preprocedural laboratory examination (principal); D06.9 Carcinoma in situ of cervix, unspecified
CPT/HCPCS: 80048; 80076; 84703; 85027

== ENCOUNTER 2021-01-10 08:19 | Day surgery (SDC) | payer MEDICARE, MEDICAID, OTHER ==
[2021-01-08 02:28] LABS: SARS-CoV-2 PCR by NAA Not Detected (NotDetected)
[2021-01-09 10:44] VITALS: BMI 50.3
[2021-01-10] MEDS ORDERED: Gabapentin 300 MG CAP ONE (08:39)
[2021-01-10] MEDS ORDERED: Famotidine 20 MG TAB ONE (08:39)
[2021-01-10] MEDS ORDERED: CeleCOXIB 100 MG CAP ONE (08:39)
[2021-01-10] MEDS ORDERED: Fentanyl 100 MCG/2 ML VIAL ONE ×5 (09:45→14:46)
[2021-01-10] MEDS ORDERED: Lidocaine 2% w/Epinephrine 1:200K 20 ML VIAL ONE (10:18)
[2021-01-10] MEDS ORDERED: Bupivacaine PF 0.5% 30 ML VIAL ONE (10:18)
[2021-01-10] MEDS ORDERED: Midazolam HCl 2 mg/2 ml Vial ONE (10:35)
[2021-01-10] MEDS ORDERED: Rocuronium Bromide 10 MG/ML (10ML VIAL) ONE (11:08)
[2021-01-10] MEDS ORDERED: Ondansetron PF 4 MG/2 ML Vial ONE (11:08)
[2021-01-10] MEDS ORDERED: Glycopyrrolate 0.2 MG/ML 5 ML SYRINGE ONE (11:08)
[2021-01-10] MEDS ORDERED: Lidocaine 1% PF 5 ML VIAL ONE (11:08)
[2021-01-10] MEDS ORDERED: PROPOFOL 200 MG/20 ML VIAL ONE (11:08)
[2021-01-10] MEDS ORDERED: Metoclopramide HCl 10 MG/2 ML VIAL ONE (11:08)
[2021-01-10] MEDS ORDERED: HYDROcodone/Acetaminophen 5/325 mg Tablet PO PRN (13:42)
[2021-01-10] MEDS ORDERED: Ondansetron PF 4 MG/2 ML Vial IVP PRN (13:42)
[2021-01-10] MEDS ORDERED: Promethazine HCl 25 MG/ML VIAL IM PRN ×2 (13:42→14:07)
[2021-01-10] MEDS ORDERED: Dextrose 50% Abboject 50 ML SYRINGE SLOW IVP PRN (13:43)
[2021-01-10] MEDS ORDERED: Bisacodyl 10 MG SUPP PR PRN (13:43)
[2021-01-10] MEDS ORDERED: Dextrose 5% in Water 1,000 ML IV PRN (13:43)
[2021-01-10] MEDS ORDERED: Insulin Regular 300 UNITS/3 ML VIAL SC PRN (13:43)
[2021-01-10] MEDS ORDERED: Simethicone Chewable 80 MG TAB PO PRN (13:43)
[2021-01-10] MEDS ORDERED: diphenhydrAMINE 25 MG CAP PO PRN (13:43)
[2021-01-10] MEDS ORDERED: Ondansetron HCl/PF 4 MG/2 ML Vial IVP PRN (14:07)
[2021-01-10] MEDS ORDERED: Promethazine HCl 25 MG/ML VIAL SLOW IVP PRN (14:07)
[2021-01-10] MEDS: Ketorolac Tromethamine 30 MG/ML VIAL IVP SCH ×2 (15:57→23:38)
[2021-01-10] MEDS: Sodium Chloride 0.9% 1,000 ML IV SCH ×2 (16:03→23:40)
[2021-01-10] MEDS: metFORMIN 500 MG TAB PO SCH (17:18)
[2021-01-10] MEDS: HYDROcodone/Acetaminophen 5/325 mg Tablet PO PRN ×2 (18:27→23:39)
[2021-01-10] MEDS: Cyclobenzaprine 10 MG TAB PO PRN (20:09)
[2021-01-10] MEDS: DULoxetine 60 MG CAP PO SCH (20:09)
[2021-01-10] MEDS: Atorvastatin Calcium 20 MG TAB PO SCH (20:09)
[2021-01-10] MEDS: Fentanyl 100 MCG/2 ML VIAL SLOW IVP PRN (22:50)
[2021-01-11] MEDS: Fentanyl 100 MCG/2 ML VIAL SLOW IVP PRN ×2 (01:13→05:48)
[2021-01-11] MEDS: Cyclobenzaprine 10 MG TAB PO PRN ×2 (05:11→17:39)
[2021-01-11] MEDS: HYDROcodone/Acetaminophen 5/325 mg Tablet PO PRN ×2 (05:11→10:27)
[2021-01-11] MEDS: Ibuprofen 600 MG TAB PO SCH ×3 (05:11→21:30)
[2021-01-11 05:51] LABS: Hemoglobin 11.8 g/dL (12.0-16.0); Mean Corpuscular HGB CONC 30.9 g/dL (32.0-36.0); Mean Corpuscular Volume 84.1 fL (78.0-98.0); Mean Platelet Volume 10.3 fL (7.4-10.4); Platelet Count 220 thou/uL (130-400); RBC Distribution Width 15.5 % (11.5-14.5); Red Blood Cell (RBC) Count 4.53 mill/uL (4.20-5.40); White Blood Cell (WBC) Count 16.4 thou/uL (4.8-10.8)
[2021-01-11] MEDS: metFORMIN 500 MG TAB PO SCH ×2 (08:12→17:39)
[2021-01-11] MEDS: DULoxetine 60 MG CAP PO SCH ×2 (08:12→21:31)
[2021-01-11] MEDS ORDERED: HYDROcodone/Acetaminophen 7.5/325 mg Tablet PO PRN (10:42)
[2021-01-11 13:49] LABS: Bilirubin Negative (Negative); Blood, Urine 2+ (Negative); Clarity Clear (Clear); Glucose, Urine (Dipstick) Normal (Negative); Ketone, Urine Negative (Negative); Leukocyte 75 Leu/uL (Negative); Nitrite Negative (Negative); Protein, Urine (Dipstick) Negative (Neg-Trace); Specific Gravity, Urine 1.006 (1.002-1.036); Squamous Epithelial 0-3 HPF (0-3); Urobilinogen Normal mg/dL (Less than 2); pH, Urine 5.5 (5.0-9.0)
[2021-01-11 13:50] LABS: Bacteria/HPF 1+ HPF (None Seen)
[2021-01-11] MEDS: HYDROcodone/Acetaminophen 7.5/325 mg Tablet PO PRN ×2 (15:22→21:30)
[2021-01-11] MEDS: Sodium Chloride 0.9% 1,000 ML IV SCH (19:27)
[2021-01-11] MEDS: Enoxaparin Sodium 40 MG/0.4 ML SYRINGE SC SCH (21:31)
[2021-01-11] MEDS: Atorvastatin Calcium 20 MG TAB PO SCH (21:31)
[2021-01-12] MEDS: HYDROcodone/Acetaminophen 7.5/325 mg Tablet PO PRN ×3 (01:24→11:42)
[2021-01-12] MEDS: Ibuprofen 600 MG TAB PO SCH (05:10)
[2021-01-12] MEDS: DULoxetine 60 MG CAP PO SCH (08:21)
[2021-01-12] MEDS: Cyclobenzaprine 10 MG TAB PO PRN (08:21)
[2021-01-12] MEDS: metFORMIN 500 MG TAB PO SCH (08:21)
[2021-01-12] MEDS: Enoxaparin Sodium 40 MG/0.4 ML SYRINGE SC SCH (08:21)
[2021-01-12 11:59] VITALS: BP 138/94; TEMP 98.6
== END 2021-01-12 12:22 | disposition home or self-care (01) ==
LOC: SDC 08:19 → SJJU 13:42 → SDC 01-12 12:22
PROVIDERS: ATTEND Student in an Organized Health Care Education/Training Program
PROC: 0UT94ZZ Resection of Uterus, Percutaneous Endoscopic Approach (ICD-10-PCS; principal; 2021-01-10)
PROC: 0UT24ZZ Resection of Bilateral Ovaries, Percutaneous Endoscopic Approach (ICD-10-PCS; 2021-01-10)
PROC: 0UT74ZZ Resection of Bilateral Fallopian Tubes, Percutaneous Endoscopic Approach (ICD-10-PCS; 2021-01-10)
DX: D06.0 Carcinoma in situ of endocervix (principal); D25.9 Leiomyoma of uterus, unspecified; N83.8 Other noninflammatory disorders of ovary, fallopian tube and broad ligament; N70.11 Chronic salpingitis; N73.6 Female pelvic peritoneal adhesions (postinfective); E11.9 Type 2 diabetes mellitus without complications; E66.01 Morbid (severe) obesity due to excess calories; Z68.43 Body mass index [BMI] 50.0-59.9, adult; Z79.82 Long term (current) use of aspirin; Z79.84 Long term (current) use of oral hypoglycemic drugs; Z79.899 Other long term (current) drug therapy; Z88.8 Allergy status to other drugs, medicaments and biological substances; Z91.018 Allergy to other foods; Z20.822 Contact with and (suspected) exposure to COVID-19
CPT/HCPCS: 58571; 71046; 82962; 85027; 86850; 86900; 86901; 87086; 88307; 93005; U0003; U0005; 36415; 36416; 81003; 81015; 87635; 93010; J0690; J1650; J1885; J2250; J2405; J2704; J2765; J3010; S0020

== ENCOUNTER 2021-05-15 11:17 | Outpatient (CLI) | payer MEDICARE, MEDICAID, OTHER | END 2021-05-15 11:18 | disposition home or self-care (01) | LOC: BICMAMMO 11:17 | PROVIDERS: ATTEND Family Medicine | DX: Z12.31 Encounter for screening mammogram for malignant neoplasm of breast (principal); Z80.3 Family history of malignant neoplasm of breast | CPT/HCPCS: 77063; 77067 ==

== ENCOUNTER 2021-07-11 08:31 | Outpatient (CLI) | payer MEDICARE, MEDICAID | END 2021-07-11 08:32 | disposition home or self-care (01) | LOC: BICCT 08:31 | PROVIDERS: ATTEND Internal Medicine Critical Care Medicine | DX: R91.1 Solitary pulmonary nodule (principal); R91.8 Other nonspecific abnormal finding of lung field; I89.8 Other specified noninfective disorders of lymphatic vessels and lymph nodes; D86.9 Sarcoidosis, unspecified | CPT/HCPCS: 71250 ==

== ENCOUNTER 2022-06-06 09:55 | Outpatient (CLI) | payer OTHER, MEDICAID | END 2022-06-06 09:56 | disposition home or self-care (01) | LOC: BICMAMMO 09:55 | PROVIDERS: ATTEND Family Medicine | DX: Z12.31 Encounter for screening mammogram for malignant neoplasm of breast (principal); Z80.3 Family history of malignant neoplasm of breast | CPT/HCPCS: 77063; 77067 ==

== ENCOUNTER 2023-07-06 14:44 | Outpatient (CLI) | payer OTHER, MEDICAID | END 2023-07-06 14:45 | disposition home or self-care (01) | LOC: CT 14:44 | PROVIDERS: ATTEND Family Medicine | DX: Z12.2 Encounter for screening for malignant neoplasm of respiratory organs (principal); F17.210 Nicotine dependence, cigarettes, uncomplicated; R91.1 Solitary pulmonary nodule | CPT/HCPCS: 71271 ==

== ENCOUNTER 2024-03-16 14:22 | Emergency (ER) | payer OTHER, MEDICAID ==
[2024-03-16] MEDS ORDERED: Ketorolac Tromethamine 30 MG (1 mL) VIAL ONE (16:16)
[2024-03-16 16:29] LABS: Influenza A by NAA Not Detected (NotDetected); Influenza B by NAA Not Detected (NotDetected); SARS-CoV-2 NAA Rapid Test Not Detected (NotDetected)
== END 2024-03-16 18:27 | disposition home or self-care (01) ==
LOC: ERS 14:22
DX: B34.9 Viral infection, unspecified (principal); E78.00 Pure hypercholesterolemia, unspecified; F17.210 Nicotine dependence, cigarettes, uncomplicated; Z79.899 Other long term (current) drug therapy
CPT/HCPCS: 0240U; 71046; 96372; 99283; J1885

== ENCOUNTER 2024-04-12 10:25 | Outpatient (CLI) | payer OTHER, MEDICAID | END 2024-04-12 10:26 | disposition home or self-care (01) | LOC: BICMRI 10:25 | PROVIDERS: ATTEND Neurological Surgery | DX: M54.12 Radiculopathy, cervical region (principal); M48.02 Spinal stenosis, cervical region | CPT/HCPCS: 72141 ==

== ENCOUNTER 2024-06-09 10:49 | Outpatient (CLI) | payer OTHER, MEDICAID ==
[2024-06-09 12:18] LABS: #Basophils 0.03 10x3/uL (0.0-0.2); %Basophils 0.3 % (0.0-1.0); %Eosinophils 1.3 % (0.0-10.0); %Monocytes 5.6 % (0.0-10.0); %Neutrophils 61.5 % (42.0-75.0); Hematocrit 39.1 % (36.0-47.0); Hemoglobin 12.7 g/dL (12.0-16.0); Mean Corpuscular HGB CONC 32.5 g/dL (32.0-36.0); Mean Corpuscular Volume 83.2 fL (78.0-98.0); Mean Platelet Volume 11.7 fL (7.4-10.4); Platelet Count 230 10x3/uL (130-400); RBC Distribution Width 15.6 % (11.5-14.5)
[2024-06-09 12:39] LABS: Anion Gap 11 mmol/L (10-20); BUN (Urea Nitrogen) 9 mg/dL (9.8-20.1); Calc. Creatinine Clearance 0 mL/min (70-130); Calcium 9.7 mg/dL (7.8-10.44); Carbon Dioxide 24 mmol/L (23-31); Chloride 110 mmol/L (98-107); Estimated GFR 89; Glucose 93 mg/dL (80-115); Potassium 3.8 mmol/L (3.5-5.1); Sodium 141 mmol/L (136-145)
== END 2024-06-09 10:50 | disposition home or self-care (01) ==
LOC: LABBT 10:49
PROVIDERS: ATTEND Neurological Surgery
DX: Z01.818 Encounter for other preprocedural examination (principal); M47.12 Other spondylosis with myelopathy, cervical region
CPT/HCPCS: 80048; 85025; 93005; 93010

== ENCOUNTER 2024-06-09 11:00 | Inpatient (IN) | payer OTHER, MEDICAID ==
[2024-06-09 11:15] VITALS: BMI 36.0
[2024-06-13] MEDS ORDERED: PROPOFOL 20 ML ONE (07:58)
[2024-06-13] MEDS ORDERED: Fentanyl 250 MCG/5 ML VIAL ONE (07:59)
[2024-06-13] MEDS ORDERED: Lidocaine 1% PF 5 ML VIAL ONE (08:02)
[2024-06-13] MEDS ORDERED: Rocuronium Bromide 10 MG/ML (10ML VIAL) ONE (08:02)
[2024-06-13] MEDS ORDERED: CEFAZOLIN 2 GM VIAL ONE (09:13)
[2024-06-13] MEDS ORDERED: Sodium Chloride 0.9% 100 ML ONE (09:13)
[2024-06-13] MEDS ORDERED: Bacitracin Zinc Ointment 30 gm TUBE ONE (09:22)
[2024-06-13] MEDS ORDERED: Vancomycin 1 GM VIAL ONE (09:22)
[2024-06-13] MEDS ORDERED: Mag-Al 1200 mg/1200 mg/30 ML UDCUP PO PRN (09:23)
[2024-06-13] MEDS ORDERED: Ondansetron PF 4 MG/2 ML Vial IVP PRN (09:23)
[2024-06-13] MEDS ORDERED: diphenhydrAMINE 25 MG CAP PO PRN (09:23)
[2024-06-13] MEDS ORDERED: Milk Of Magnesia 30 ML UDCUP PO PRN (09:23)
[2024-06-13] MEDS ORDERED: traMADol HCl 50 MG TAB PO PRN (09:23)
[2024-06-13] MEDS ORDERED: HYDROcodone/Acetaminophen 10/325 mg Tablet PO PRN (09:23)
[2024-06-13] MEDS ORDERED: Promethazine 25 MG TAB PO PRN (09:23)
[2024-06-13] MEDS ORDERED: Glucagon 1 MG/ML KIT IM PRN (09:26)
[2024-06-13] MEDS ORDERED: Dextrose 50% Abboject 50 ML SYRINGE SLOW IVP PRN (09:26)
[2024-06-13] MEDS ORDERED: Dextrose 5% in Water 1,000 ML IV PRN (09:26)
[2024-06-13] MEDS ORDERED: Insulin Lispro 100 UNIT/ML 10 ML VIAL SC PRN (09:26)
[2024-06-13] MEDS ORDERED: Dexamethasone 20 MG/5 ML VIAL ONE (10:00)
[2024-06-13] MEDS ORDERED: Dexamethasone 4 mg/ml Vial ONE (10:00)
[2024-06-13] MEDS ORDERED: PHENYLEPHRINE-NS 100 MCG/ML 10 ML SYRINGE ONE (10:24)
[2024-06-13] MEDS ORDERED: ePHEDrine Sulfate 50 MG/10 ML VIAL ONE (10:33)
[2024-06-13] MEDS ORDERED: Lidocaine 2% PF 5 ML VIAL ONE (12:08)
[2024-06-13] MEDS ORDERED: Ondansetron PF 4 MG/2 ML Vial ONE ×2 (12:09→13:48)
[2024-06-13] MEDS ORDERED: SUGAMMADEX SODIUM 200 MG/2 ML VIAL ONE (12:14)
[2024-06-13] MEDS ORDERED: fentaNYL PF 100 MCG/2 ML SYRINGE ONE (12:50)
[2024-06-13] MEDS ORDERED: HYDROmorphone 0.5 MG/0.5 ML SYRINGE ONE ×3 (13:32→13:57)
[2024-06-13] MEDS ORDERED: Meperidine HCl/PF 25 MG (1 mL) VIAL ONE (13:45)
[2024-06-13] MEDS: Morphine 2 MG/ML VIAL SLOW IVP PRN (15:51)
[2024-06-13] MEDS: Gabapentin 100 MG CAP PO SCH (15:52)
[2024-06-13] MEDS: HYDROcodone/Acetaminophen 10/325 mg Tablet PO PRN (15:52)
[2024-06-13 16:56] LABS: #Basophils Less than 0.03 10x3/uL (0.0-0.2); #Eosinphils Less than 0.03 10x3/uL (0.0-0.7); %Basophils 0.1 % (0.0-1.0); %Lymphocytes 8.4 % (21.0-51.0); %Monocytes 1.5 % (0.0-10.0); %Neutrophils 89.4 % (42.0-75.0); Hematocrit 37.3 % (36.0-47.0); Hemoglobin 11.8 g/dL (12.0-16.0); Mean Corpuscular HGB CONC 31.6 g/dL (32.0-36.0); Mean Corpuscular Hemoglobin 26.8 pg (27.0-31.0); Mean Corpuscular Volume 84.8 fL (78.0-98.0); Mean Platelet Volume 12.1 fL (7.4-10.4); Platelet Count 192 10x3/uL (130-400); RBC Distribution Width 15.7 % (11.5-14.5)
[2024-06-13] MEDS: CEFAZOLIN 2 GM in Sodium Chloride 0.9% 100 ML IVPB SCH (17:51)
[2024-06-13] MEDS: Sodium Chloride 0.9% 1,000 ML IV SCH (17:52)
[2024-06-13] MEDS: Cyclobenzaprine 10 MG TAB PO PRN (17:53)
[2024-06-13] MEDS ORDERED: CEFAZOLIN 2 GM in Sodium Chloride 0.9% 100 ML IVPB SCH ×2 (20:00→22:00)
[2024-06-13] MEDS: Topiramate 25 MG TAB PO SCH (20:09)
[2024-06-13] MEDS: DULoxetine 60 MG CAP PO SCH (20:09)
[2024-06-14] MEDS: CEFAZOLIN 2 GM in Sodium Chloride 0.9% 100 ML IVPB SCH (01:29)
[2024-06-14] MEDS ORDERED: Phenol 177 ML BOT PO PRN (06:30)
[2024-06-14] MEDS ORDERED: Benzocaine/Menthol 1 LOZ LOZ PO PRN (06:30)
[2024-06-14 08:19] LABS: ALT (SGPT) 17 U/L (8-55); AST (SGOT) 25 U/L (5-34); Albumin 3.4 g/dL (3.4-4.8); Alkaline Phosphatase 79 U/L (40-110); Anion Gap 11 mmol/L (10-20); BUN (Urea Nitrogen) 6 mg/dL (9.8-20.1); Bilirubin, Total 0.5 mg/dL (0.2-1.2); Calc. Creatinine Clearance 110 mL/min (70-130); Calcium 8.9 mg/dL (7.8-10.44); Carbon Dioxide 25 mmol/L (23-31); Chloride 104 mmol/L (98-107); Estimated GFR 92; Globulin 3.5 g/dL (2.4-3.5); Glucose 123 mg/dL (80-115); Potassium 3.6 mmol/L (3.5-5.1); Protein, Total 6.9 g/dL (5.8-8.1); Sodium 136 mmol/L (136-145)
[2024-06-15 11:57] VITALS: BP 157/92; TEMP 99.3
== END 2024-06-15 14:18 | disposition home or self-care (01) | DRG 473 ==
LOC: SURG A 06-13 07:01 → INTOOBSV 06-13 07:01 → SURG A 06-13 14:52 → OBSVTOIN 06-14 18:38
PROVIDERS: ADMIT Neurological Surgery; ATTEND Neurological Surgery
PROC: 0RG2071 Fusion of 2 or more Cervical Vertebral Joints with Autologous Tissue Substitute, Posterior Approach, Posterior Column, Open Approach (ICD-10-PCS; principal; 2024-06-13)
PROC: 01N10ZZ Release Cervical Nerve, Open Approach (ICD-10-PCS; 2024-06-13)
DX: M48.02 Spinal stenosis, cervical region (principal); E78.5 Hyperlipidemia, unspecified; E11.9 Type 2 diabetes mellitus without complications; F17.210 Nicotine dependence, cigarettes, uncomplicated; G89.4 Chronic pain syndrome; Z66 Do not resuscitate; E66.01 Morbid (severe) obesity due to excess calories; I10 Essential (primary) hypertension; Z85.44 Personal history of malignant neoplasm of other female genital organs; Z90.710 Acquired absence of both cervix and uterus; Z79.899 Other long term (current) drug therapy; Z79.85 Long-term (current) use of injectable non-insulin antidiabetic drugs; Z79.82 Long term (current) use of aspirin; Z79.1 Long term (current) use of non-steroidal anti-inflammatories (NSAID); Z68.36 Body mass index [BMI] 36.0-36.9, adult; Z88.8 Allergy status to other drugs, medicaments and biological substances; Z91.018 Allergy to other foods
CPT/HCPCS: 36415; 36416; 80053; 85025; C1713; J1100; J1170; J2001; J2175; J2272; J2405; J2704; J3010; J3370; J7030

== ENCOUNTER 2024-07-04 13:45 | Outpatient (CLI) | payer OTHER, MEDICAID | END 2024-07-04 13:46 | disposition home or self-care (01) | LOC: BICRAD 13:45 | PROVIDERS: ATTEND Neurological Surgery | DX: M47.12 Other spondylosis with myelopathy, cervical region (principal); Z98.890 Other specified postprocedural states | CPT/HCPCS: 72040 ==

== ENCOUNTER 2024-09-07 13:47 | Outpatient (CLI) | payer OTHER, MEDICAID | END 2024-09-07 13:48 | disposition home or self-care (01) | LOC: BICCT 13:47 | PROVIDERS: ATTEND Family Medicine | DX: Z12.31 Encounter for screening mammogram for malignant neoplasm of breast (principal); Z12.2 Encounter for screening for malignant neoplasm of respiratory organs; F17.210 Nicotine dependence, cigarettes, uncomplicated; Z80.3 Family history of malignant neoplasm of breast | CPT/HCPCS: 71271; 77063; 77067 ==

== ENCOUNTER 2024-09-16 14:02 | Outpatient (CLI) | payer OTHER, MEDICAID | END 2024-09-16 14:03 | disposition home or self-care (01) | LOC: BICRAD 14:02 | PROVIDERS: ATTEND Family Medicine | DX: G89.29 Other chronic pain (principal); M17.11 Unilateral primary osteoarthritis, right knee ==

== ENCOUNTER 2024-10-05 09:57 | Outpatient (CLI) | payer OTHER, MEDICAID | END 2024-10-05 09:58 | disposition home or self-care (01) | LOC: BICRAD 09:57 | PROVIDERS: ATTEND Neurological Surgery | DX: M47.22 Other spondylosis with radiculopathy, cervical region (principal); Z98.890 Other specified postprocedural states | CPT/HCPCS: 72040 ==

== ENCOUNTER 2025-07-29 09:37 | Emergency (ER) | payer OTHER, MEDICAID ==
[2025-07-29 09:59] LABS: #Basophils 0.04 10x3/uL (0.0-0.2); #Eosinophils 0.08 10x3/uL (0.0-0.7); #Monocytes 0.93 10x3/uL (0.11-0.59); #Neutrophils 9.07 10x3/uL (1.40-6.50); %Basophils 0.3 % (0.0-1.0); %Eosinophils 0.6 % (0.0-10.0); %Lymphocytes 25.1 % (21.0-51.0); %Monocytes 6.8 % (0.0-10.0); %Neutrophils 66.8 % (42.0-75.0); Hematocrit 27.2 % (36.0-47.0); Hemoglobin 8.9 g/dL (12.0-16.0); Mean Corpuscular Hemoglobin 26.7 pg (27.0-31.0); Mean Corpuscular Volume 81.7 fL (78.0-98.0); Platelet Count 191 10x3/uL (130-400); Red Blood Cell (RBC) Count 3.33 mill/uL (4.20-5.40); White Blood Cell (WBC) Count 13.58 10x3/uL (4.8-10.8)
[2025-07-29 10:16] LABS: ALT (SGPT) 11 U/L (Less than 34); AST (SGOT) 15 U/L (11-34); Albumin 2.9 g/dL (3.1-4.5); Alkaline Phosphatase 64 U/L (40-110); Anion Gap 13 mmol/L (10-20); BUN (Urea Nitrogen) 7 mg/dL (9.8-20.1); Bilirubin, Total 0.4 mg/dL (0.3-1.2); Calc. Creatinine Clearance 0 mL/min (70-130); Calcium 8.6 mg/dL (7.8-10.44); Carbon Dioxide 20 mmol/L (23-31); Chloride 112 mmol/L (98-107); Globulin 2.9 g/dL (2.4-3.5); Glucose 140 mg/dL (80-115); Potassium 3.5 mmol/L (3.5-5.1); Sodium 141 mmol/L (136-145)
[2025-07-29 12:17] LABS: Bacteria/HPF None Seen HPF (None Seen); CAUTI Indications for Culture Acute Hematuria; Glucose, Urine (Dipstick) Normal (Negative); Leukocyte Negative Leu/uL (Negative); Protein, Urine (Dipstick) Negative (Neg-Trace); RBC/HPF None Seen HPF (0-3); Specific Gravity, Urine 1.015 (1.002-1.036); WBC/HPF 0-3 HPF (0-3)
[2025-07-29 12:20] LABS: Urine Culture Reflex No No
[2025-07-29] MEDS ORDERED: Iopamidol-370 76% 500 ML MDV (1 ML CHARGE) ONE (13:46)
== END 2025-07-29 13:14 | disposition home or self-care (01) ==
LOC: ERS 09:37
DX: R53.1 Weakness (principal); E86.0 Dehydration; I95.9 Hypotension, unspecified; R29.700 NIHSS score 0; E11.9 Type 2 diabetes mellitus without complications; E78.5 Hyperlipidemia, unspecified; Z87.891 Personal history of nicotine dependence; Z79.4 Long term (current) use of insulin; Z79.82 Long term (current) use of aspirin; Z79.899 Other long term (current) drug therapy
CPT/HCPCS: 71275; 80053; 81001; 83605; 84484; 85025; 87040; 93005; 93971; J3010; 36415; 51798; 96361; 96374; Q9967

== ENCOUNTER 2025-09-08 12:12 | Outpatient (CLI) | payer OTHER, MEDICAID | END 2025-09-08 12:13 | disposition home or self-care (01) | LOC: BICCT 12:12 | PROVIDERS: ATTEND Family Medicine | DX: Z12.2 Encounter for screening for malignant neoplasm of respiratory organs (principal); F17.210 Nicotine dependence, cigarettes, uncomplicated | CPT/HCPCS: 71271 ==